=== PATIENT | female | born 2000 | race Caucasian/White ===

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

== ENCOUNTER → 2018-04-28 11:49 | Outpatient (CLI) | payer OTHER, SELFPAY ==
[2018-04-28 11:53] LABS: Adenovirus F 40/41, stool Not Detected (NotDetected); Astrovirus Not Detected (NotDetected); Campylobacter Not Detected (NotDetected); Clostridium Difficile A/B, PCR Not Detected (NotDetected); Cyclospora Cayetanesis Not Detected (NotDetected); Entamoeba histolytica Not Detected (NotDetected); Enteroaggregative E coli Not Detected (NotDetected); Enterotoxigenic E coli Not Detected (NotDetected); Giardia lamblia Not Detected (NotDetected); Norovirus Not Detected (NotDetected); Plesimonas Shigalloides, PCR Not Detected (NotDetected); Rotavirus A Not Detected (NotDetected); Salmonella, PCR Not Detected (NotDetected); Sapovirus Not Detected (NotDetected); Shiga-like toxin E coli Not Detected (NotDetected); Shigella Enterovasive E coli Not Detected (NotDetected); Vibrio Cholerae Not Detected (NotDetected); Vibrio, PCR Not Detected (NotDetected); Yersinia Entercolitica, PCR Not Detected (NotDetected)
[2018-04-28 13:43] LABS: Chloride 107 mmol/L (98-107); Potassium 3.8 mmoL/L (3.5-5.1); Sodium 141 mmol/L (136-145)
[2018-04-28 13:47] LABS: Basophils % 0.7 % (0.1-2.0); Eosinophils # 0.2 K/mm3 (0.0-0.4); Hematocrit 41.9 % (37.0-47.0); Hemoglobin 13.5 g/dL (12.2-16.2); Lymphocytes # 2.1 K/mm3 (0.7-4.5); Lymphocytes % 40.8 K/mm3 (10-50); Mean Corpuscular HGB Conc 32.3 g/dL (31.8-35.4); Mean Corpuscular Hemoglobin 27.6 pg (27.0-31.2); Mean Corpuscular Volume 85.5 fl (81-99); Mean Platelet Volume 7.9 fl (7.4-10.4); Monocytes # 0.3 K/mm3 (0.1-1.0); Monocytes % 5.2 % (1.7-9.3); Neutrophils # 2.5 K/mm3 (1.8-7.8); Neutrophils % 50.2 % (37.0-80.0); Platelet Count 254 K/mm3 (142-424); Red Cell Distribution Width 12.1 % (11.5-17.5); White Blood Count 5.1 K/mm3 (4.5-13.0)
[2018-04-28 13:56] LABS: Alanine Aminotransferase 66 U/L (12-78); Albumin Level 3.7 gm/dL (3.4-5.0); Albumin/Globulin Ratio 1.2 (1.1-1.8); Alkaline Phosphatase 85 U/L (46-116); Anion Gap 14.8 mEq/L (5-15); Aspartate Amino Transferase 40 U/L (15-37); Bilirubin,Total 0.2 mg/dL (0.2-1.0); Blood Urea Nitrogen 9 mg/dL (7-18); Calcium 8.4 mg/dL (8.5-10.1); Carbon Dioxide 23 mmol/L (21.0-32.0); Creatinine,Serum 0.72 mg/dL (0.55-1.02); Estimated Glomerular Filt Rate 104 ml/min (>60); GFR (African American) 126 ML/MIN (>60); Globulin 3.1 gm/dl (1.3-3.2); Glucose 96 mg/dL (74-106); Lipase 107 u/L (73-393); Total Protein,Serum 6.8 gm/dL (6.4-8.2)
[2018-04-28 16:24] LABS: Enteropathogenic E coli Detected (NotDetected)
[2018-04-28 16:25] LABS: Cryptosporidium Detected (NotDetected)
== END ==
PROVIDERS: Visit Provider Nurse Practitioner Family
DX: R10.9 Unspecified abdominal pain (principal); R19.7 Diarrhea, unspecified
CPT/HCPCS: 36415; 80053; 83690; 85025; 87507

== ENCOUNTER → 2018-07-12 19:39 | Outpatient (CLI) | payer OTHER, SELFPAY ==
[2018-07-12 20:33] LABS: Basophils % 0.3 % (0.1-2.0); Eosinophils # 0.1 K/mm3 (0.0-0.4); Eosinophils % 0.6 % (0.1-12.0); Hemoglobin 13.1 g/dL (12.2-16.2); Lymphocytes # 2.6 K/mm3 (0.7-4.5); Lymphocytes % 22.9 K/mm3 (10-50); Mean Corpuscular HGB Conc 32.9 g/dL (31.8-35.4); Mean Corpuscular Hemoglobin 29.1 pg (27.0-31.2); Mean Corpuscular Volume 88.4 fl (81-99); Mean Platelet Volume 7.6 fl (7.4-10.4); Monocytes # 0.6 K/mm3 (0.1-1.0); Neutrophils # 8.1 K/mm3 (1.8-7.8); Neutrophils % 71.2 % (37.0-80.0); Platelet Count 221 K/mm3 (142-424); Red Blood Count 4.52 M/mm3 (4.20-5.40); Red Cell Distribution Width 12.9 % (11.5-17.5); White Blood Count 11.3 K/mm3 (4.5-13.0)
== END ==
PROVIDERS: PCP Nurse Practitioner Family; Visit Provider Nurse Practitioner Family
DX: R59.9 Enlarged lymph nodes, unspecified (principal)
CPT/HCPCS: 36415; 85025

== ENCOUNTER → 2018-07-19 11:57 | Outpatient (CLI) | payer OTHER, SELFPAY ==
--- NOTE | 2018-07-19 12:08 | US_ITS ---
US breast RT limited INDICATION: Episode of redness and hardness of the right breast ORDERING PHYSICIAN: Dina Arreola PATIENT AGE: 17 years COMPARISON: None TECHNIQUE: Routine FINDINGS: No solid or cystic lesions evident. Small nodes in the axilla nonspecific IMPRESSION: Negative right breast ultrasound BI-RADS Category: 1 Negative Recommend correlation with physical exam. Any palpable nodularity should be managed on a clinical basis. Negative ultrasound does not exclude the possibility of underlying pathology. (A letter has been sent to the patient regarding results of the study.)
== END ==
PROVIDERS: Family Provider Internal Medicine Adolescent Medicine; PCP Nurse Practitioner Family; Visit Provider Nurse Practitioner Family
DX: N61.0 Mastitis without abscess (principal)
CPT/HCPCS: 76642

== ENCOUNTER → 2019-01-16 17:31 | Outpatient (CLI) | payer OTHER, SELFPAY ==
[2019-01-19 09:20] LABS: Neisseria gonorrhoeae, NAA Negative (Negative)
== END ==
PROVIDERS: Visit Provider Nurse Practitioner Obstetrics & Gynecology
DX: Z72.51 High risk heterosexual behavior (principal)
CPT/HCPCS: 87491; 87591

== ENCOUNTER → 2019-01-25 14:43 | Outpatient (CLI) | payer OTHER, SELFPAY ==
--- NOTE | 2019-01-25 14:47 | US_ITS ---
US transvaginal HISTORY: Pelvic pain ITS.REASON: US T/V- Pelvic Pain ORDERING PHYSICIAN: Chan Shankar MD PATIENT AGE: 18 years Comparison: None FINDINGS: The uterus measures 7 x 3.5 x 4 cm with a combined endometrial thickness of 5 mm.. There are small nabothian cysts. The right ovary is 2.5 x 1.8 cm. Left ovary is 2 x 2 cm. No dominant ovarian cyst. Small follicles are present bilaterally. No cul-de-sac fluid apparent. Bilateral ovarian blood flow is present. IMPRESSION: Unremarkable pelvic ultrasound.
== END ==
PROVIDERS: PCP Nurse Practitioner Family; Visit Provider Nurse Practitioner Obstetrics & Gynecology
DX: R10.2 Pelvic and perineal pain (principal)
CPT/HCPCS: 76830

== ENCOUNTER 2020-06-24 16:56 | Emergency (ER) | payer OTHER, SELFPAY ==
[2020-06-24 17:32] VITALS: BP 139/79; PULSE 91; RESP 20; TEMP 36.7; O2SAT 96; BMI 33.9
--- NOTE | 2020-06-24 17:41 | HMH.EDUTC ---
[facility] [place] Clinical Impression: UTI (urinary tract infection) Qualifiers: Urinary tract infection type: site unspecified Hematuria presence: with hematuria Qualified Code(s): N39.0 - Urinary tract infection, site not specified; R31.9 - Hematuria, unspecified Disposition: Home, Self-Care Condition on Discharge: Good Instructions: DI for Urinary Tract Infection (UTI), Preventing the Spread of Coronavirus Discharge Instructions, Diarrhea Additional Instructions: ? Drink extra fluids with and between meals. If you have difficulty drinking, try very small amounts of water or suck on ice chips. ? Avoid fruit juices, as these do not replace minerals and can actually increase diarrhea. ? Children and adults can use sports drinks to replenish electrolytes. Younger children and infants should use products formulated for children, like oral rehydration solutions. ? Eat food in small amounts and let your stomach recover. ? Get lots of rest. You may feel tired or weak. ? No greasy or fried foods for the next 24-48 hours BRAT diet Bananas Rice Apples and [place] ? Make sure to drink plenty of liquids ? Return if needed ? Straight to ER if any life threatening symptoms ? You was given an outpatient order for diarrhea panel, please collect specimen and bring back to outpatient lab then call back to the [facility] or follow up with family doctor for results ? Follow up with family doctor in the next 48-72 hours if no improvement or any worsening of symptoms *Increase fluids. Water not Soda or Tea *Start antibiotic immediately and be sure to take as ordered for the FULL length of time although you should start to see improvement over the next 48 hours *Pyridium as needed Remember this medication will turn your urine [place]. This is normal but it will stain what ever it gets on *You should not use Pyridium for more than 48 hours. If so , follow up with your primary physician to review urine culture and ensure that antibiotic is adequate for infection *Be SURE to follow up anytime for new or worsening symptoms with your family doctor. AND in 48 hours for urine culture results with your family doctor, if you do not have a doctor then you may call back to the [facility] for urine culture results and further treatment. We do recommend that you choose and establish care with a Primary Care Physician. AND follow up with them in 10-14 days to repeat UA to ensure infection is resolved and blood no longer present *Be sure to let your PCP know that we sent urine cultures from the [facility] so they can follow up to ensure that you area the on the correct antibiotic Call your doctor office and make appointment for 48 hours (2 days from today) to follow up and get the results of your urine culture and further treatment Call back to [facility] tomorrow for your COVID test results You was given handout with instructions for Self Quarantine and Self Isolation make sure that you follow instructions until you have a negative COVID test Give 5-7 days for your STD testing to be back Follow up with your family doctor or call back to the [facility] for your results Prescriptions: Sulfamethoxazole/Trimethoprim [Bactrim DS tablet] 1 each PO BID 10 Days #20 tab Transmission Status: Pending to [facility] Referrals: Dina Arreola [Primary Care Provider] - As needed Time of Disposition: 17:51 Medical Decision Making - Song Inquiry Pt receiving controlled substance: No Song was queried for this patient: No Vital Signs: 06/24/20 17:32 Temperature 98.1 F Temperature Source Oral Pulse Rate [Right Brachial] 91 H Respiratory Rate 20 Blood Pressure [Right Arm] 139/79 Blood Pressure Mean [Right Arm] 99 Blood Pressure Source [Right Arm] Automatic Cuff Blood Pressure Position [Right Arm] Sitting 02 Sat by Pulse Oximetry 96 Oxygen Delivery Method Room Air - Lab Data Lab results reviewed: Yes: I reviewed the patient's lab results. Orders (Tests/Meds): ORDERS Category Date Time Status Coronavirus 19
[2020-06-24 17:53] VITALS: BP 139/79; PULSE 91; RESP 20; TEMP 36.7; O2SAT 96
[2020-06-24 17:56] LABS: Apearance,Urine Cloudy (Clear); Bilirubin,Urine 1+ (Negative); Blood, Urine Trace (Negative); Color,Urine Dark Yellow (Yellow); Glucose,Urine (UA) Negative (Negative); Ketones,Urine Negative (Negative); Protein,Urine Trace (Negative); Specific Gravity, Urine 1.025 (1.005-1.030); UTC Leukocyte Esterase,Urine Trace (Negative); UTC Nitrate,Urine Negative (Negative); UTC Pregnancy Test, Urine Negative (Negative); Urobilinogen,Urine 0.2 EU/dl (0.2)
[2020-06-27 06:20] LABS: Neisseria gonorrhoeae, NAA Negative (Negative)
== END 2020-06-24 17:55 | disposition home or self-care (01) ==
PROVIDERS: Emergency Provider Nurse Practitioner; PCP Nurse Practitioner Family
DX: N30.01 Acute cystitis with hematuria (principal); Z20.828 Contact with and (suspected) exposure to other viral communicable diseases
CPT/HCPCS: 81003; 81025; 87491; 87591; 99202; U0003

== ENCOUNTER → 2020-08-20 11:51 | Outpatient (CLI) | payer OTHER, SELFPAY | PROVIDERS: PCP Nurse Practitioner Family; Visit Provider Nurse Practitioner Family | DX: Z03.818 Encounter for observation for suspected exposure to other biological agents ruled out (principal) | CPT/HCPCS: U0003 ==

== ENCOUNTER → 2021-01-27 14:49 | Outpatient (CLI) | payer OTHER, SELFPAY ==
--- NOTE | 2021-01-27 14:53 | US_ITS ---
PROCEDURE: US TRANSVAGINAL CLINICAL INDICATION: Left sided pain, left ovarian cyst COMPARISON: US TRANVAG US transvaginal from 01/25/2019 FINDINGS: The uterus is 7 x 4 x 4 cm with a combined endometrial thickness of 6 mm. No uterine mass evident. Right ovary is 3.5 x 2.3 cm and contains a 2.4 cm benign-appearing cyst. The left ovary has an unremarkable appearance at 2 x 1.3 cm. No cul-de-sac fluid evident. There is bilateral ovarian blood flow. IMPRESSION: Benign-appearing right ovarian cyst at 2.4 cm otherwise negative Dictated by: Jose De Jesus Mcdaniel MD 01/28/2021 07:19 Jose De Jesus Mcdaniel MD in OV 01/28/2021 07:19
== END ==
PROVIDERS: PCP Nurse Practitioner Family; Visit Provider Nurse Practitioner Obstetrics & Gynecology
DX: R10.9 Unspecified abdominal pain (principal); N83.202 Unspecified ovarian cyst, left side
CPT/HCPCS: 76830

== ENCOUNTER 2021-07-02 14:13 | Emergency (ER) | payer OTHER, SELFPAY ==
[2021-07-02 15:31] VITALS: BP 137/77; PULSE 77; RESP 18; TEMP 37.2; O2SAT 100; BMI 31.6
--- NOTE | 2021-07-02 15:39 | HMH.EDUTC ---
[facility] [place] Disposition Clinical Impression: Encounter for laboratory testing for COVID-19 virus, Viral syndrome Disposition: Home, Self-Care Condition on Discharge: Good Instructions: DI for Viral Syndrome, Benzonatate Additional Instructions: *Monitor Temp, Over the counter Motrin or Tylenol as directed/as needed Tylenol every 4 hours and Motrin every 6 hours (as long as your family doctor has told you that you can take it) for fever or pain. and straight to ER if unable to lower temp less than 101.0 after medication given *Warm salt water gargles may help to soothe the throat *Throat Lozenges *Warm fluids like tea with honey may help to soothe the throat *Sleep elevated *Humidifier/Vaporizer *Flonase 2 sprays in each nostril daily but be aware that it may take 2-3 days before you notice improvement Follow up IMMEDIATELY for new or worsening symptoms or no Noticeable improvement over the next 48-72 hours. 911 for difficulty breathing or swallowing You were tested for today for COVID19 your test result should be back in the next 24-48 hours, you may call to the [facility] to see if your test results are back in the next 48 hours [phone] [facility] hours are 9am-9pm You was given a handout with instructions for Self Quarantine and Self isolation for while you wait on test results and what to do if they are positive If you are positive the Health Dept will be contacting you also Make sure to take your Vitamins Vit. C Vit D and Zinc if you can take them Prescriptions: Fluticasone Propionate [Flonase 50mcg nasal spray 16gm] 1 spr NS DAILY #1 ml Transmission Status: Pending to [id number] Benzonatate [Tessalon Perle 100mg Cap*] 100 mg PO TID PRN #15 cap PRN Reason: Cough Transmission Status: Pending to [id number] Referrals: Dina Arreola [Primary Care Provider] - As needed Forms: Work/School Release Time of Disposition: 15:46 Medical Decision Making - Song Inquiry Pt receiving controlled substance: No Song was queried for this patient: No Vital Signs: 07/02/21 15:31 Temperature 98.9 F Temperature Source Oral Pulse Rate [Left] 77 Respiratory Rate 18 Blood Pressure [Right Arm] 137/77 Blood Pressure Mean [Right Arm] 97 02 Sat by Pulse Oximetry 100 Orders (Tests/Meds): ORDERS Category Date Time Status Covid-19 Nasal PCR ([facility]) Routine Lab 07/02/21 15:22 Received [facility] [place] HPI - General Stated complaint: covid Time Seen by Provider: 07/02/21 15:39 Mode of Arrival: Ambulatory Source of Information: Patient Limitations: No Limitations Description of Symptoms (Recalled from Triage Doc. by RN): pt was exposed to covid at work. pt presents with cough, MCC[place], runny nose and sweating. HEENT Symptoms (Recalled from RN notes): Yes (runny nose and M[place]OUGH) Resp Symptoms (Recalled from RN notes): Yes (cough) Skin Symptoms (Recalled from RN notes): No MS Symptoms (Recalled from RN notes): No Functional Status (Recalled from RN notes): sweating - History of Present Illness Provider Complaint: Patient state that she was around someone at work that has tested positive for COVID State that her HR told her she needed to get tested States that she has been having cough, runny nose and headache so she came in today to get tested - Related Data Previous Rx's Medication Instructions Recorded etonogestrel 0.12 mg-ethinyl 1 vag ring VAGINAL Q4W #3 each 04/17/21 estradiol 0.015 mg/24 hr vaginal ring phentermine 37.5 mg tablet 37.5 mg PO DAILY #30 tab 06/02/21 Benzonatate [Tessalon Perle 100mg 100 mg PO TID PRN #15 cap 07/02/21 Cap*] Fluticasone Propionate [Flonase 1 spr NS DAILY #1 ml 07/02/21 50mcg nasal spray 16gm] Allergies Allergy/AdvReac Type Severity Reaction Status Date / Time No Known Allergies Allergy Verified 04/17/21 09:21 - Worker's Comp Is this a Worker's Comp case?: No [facility] History - Hepatitis A Screen Drug use history?: No High risk sexual behaviors?: No History of sexual
[2021-07-02 15:59] VITALS: BP 137/77; PULSE 77; RESP 18; TEMP 37.2
== END 2021-07-02 16:10 | disposition home or self-care (01) ==
PROVIDERS: Emergency Provider Nurse Practitioner; PCP Nurse Practitioner Family
DX: B34.9 Viral infection, unspecified (principal); Z20.822 Contact with and (suspected) exposure to COVID-19; F33.1 Major depressive disorder, recurrent, moderate; F17.210 Nicotine dependence, cigarettes, uncomplicated
CPT/HCPCS: 99203; G0463; U0003

== ENCOUNTER → 2021-08-08 13:32 | Outpatient (CLI) | payer OTHER, SELFPAY | PROVIDERS: PCP Nurse Practitioner Family; Visit Provider Nurse Practitioner | DX: Z20.822 Contact with and (suspected) exposure to COVID-19 (principal); U07.1 COVID-19 | CPT/HCPCS: C9803; U0003; U0005 ==

== ENCOUNTER 2021-08-12 09:58 | Outpatient (CLI) | payer OTHER, SELFPAY ==
[2021-08-12 11:08] VITALS: BP 126/76; PULSE 95; RESP 18; TEMP 36.8; O2SAT 98
[2021-08-12 11:30] VITALS: BP 109/73; PULSE 78; RESP 18; O2SAT 99
[2021-08-12 11:45] VITALS: BP 116/70; PULSE 75; RESP 14; O2SAT 99
[2021-08-12 12:08] VITALS: BP 138/83; PULSE 79; RESP 18; O2SAT 100
[2021-08-12 12:31] VITALS: BP 105/68; PULSE 78; RESP 18; O2SAT 100
[2021-08-12 12:45] VITALS: BP 120/75; PULSE 74; RESP 16; O2SAT 100
== END 2021-08-12 12:45 | disposition home or self-care (01) ==
LOC: INF 10:00
PROVIDERS: PCP Nurse Practitioner Family; Visit Provider Nurse Practitioner Family
DX: U07.1 COVID-19 (principal); Z23 Encounter for immunization
CPT/HCPCS: 96365

== ENCOUNTER → 2021-09-18 14:39 | Outpatient (CLI) | payer OTHER, SELFPAY ==
[2021-09-18 15:52] LABS: HCG,Quantitative 878 mIU/ml (0-5.42)
== END ==
PROVIDERS: Visit Provider Nurse Practitioner Obstetrics & Gynecology
DX: N92.6 Irregular menstruation, unspecified (principal)
CPT/HCPCS: 84702

== ENCOUNTER 2021-12-01 16:56 | Emergency (ER) | payer OTHER, SELFPAY ==
[2021-12-01 20:00] VITALS: BP 0/0; PULSE 0; RESP 0; TEMP -17.7; TEMP 0
== END 2021-12-01 20:01 | disposition left against medical advice (07) ==
LOC: UTC 17:00
PROVIDERS: Emergency Provider Nurse Practitioner Family; PCP Nurse Practitioner Family
DX: Z20.822 Contact with and (suspected) exposure to COVID-19 (principal)

== ENCOUNTER → 2022-12-04 16:46 | Outpatient (CLI) | payer OTHER, SELFPAY ==
[2022-12-07 23:21] LABS: Neisseria gonorrhoeae, NAA Negative (Negative)
== END ==
PROVIDERS: PCP Obstetrics & Gynecology; Visit Provider Obstetrics & Gynecology
DX: Z34.90 Encounter for supervision of normal pregnancy, unspecified, unspecified trimester (principal)
CPT/HCPCS: 87086; 87491; 87591

== ENCOUNTER → 2022-12-18 13:40 | Outpatient (CLI) | payer OTHER, SELFPAY ==
[2022-12-18 14:27] LABS: Basophils # 0.1 K/mm3 (0-0.2); Basophils % 0.7 % (0.1-2.0); Eosinophils # 0.1 K/mm3 (0.0-0.4); Eosinophils % 1.3 % (0.1-12.0); Hematocrit 36.6 % (37.0-47.0); Hemoglobin 12.7 g/dL (12.2-16.2); Lymphocytes # 1.9 K/mm3 (0.7-4.5); Lymphocytes % 26.1 % (10-50); Mean Corpuscular HGB Conc 34.6 g/dL (31.8-35.4); Mean Corpuscular Hemoglobin 29.3 pg (27.0-31.2); Mean Corpuscular Volume 84.7 fl (81-99); Mean Platelet Volume 8.3 fl (7.4-10.4); Monocytes # 0.3 K/mm3 (0.1-1.0); Monocytes % 3.7 % (1.7-9.3); Neutrophils % 68.1 % (37.0-80.0); Platelet Count 266 K/mm3 (142-424); Red Blood Count 4.32 M/mm3 (4.20-5.40); Red Cell Distribution Width 13.3 % (11.5-17.5); White Blood Count 7.3 K/mm3 (4.8-10.8)
[2022-12-20 11:08] LABS: HIV Screen 4th Generation wRfx Non Reactive (Non Reactive); Rapid Plasma Reagin Ab Titer Non Reactive (NonRea<1:1); Rubella Antibodies, IgG 3.45 index (Immune >0.99)
[2022-12-22 23:23] LABS: Hepatitis B Surface Antigen NEGATIVE; Hepatitis C Antibody <0.1
== END ==
LOC: LAB 13:40
PROVIDERS: Obstetrics & Gynecology; PCP Nurse Practitioner Family; Visit Provider Obstetrics & Gynecology
DX: Z34.90 Encounter for supervision of normal pregnancy, unspecified, unspecified trimester (principal)
CPT/HCPCS: 36415; 85025; 86593; 86703; 86762; 86850; 87340; 87380; G0432

== ENCOUNTER → 2023-01-22 11:29 | Outpatient (CLI) | payer OTHER, SELFPAY ==
--- NOTE | 2023-01-22 11:34 | US_ITS ---
FINAL REPORT CLINICAL HISTORY: determine heart tones FINDINGS: Sonographic images of the pelvis were obtained. Gestational sac is seen in the uterus. pole is present with crown-rump length measuring 62 mm corresponding to 12 week 5 day gestation. No heart beat is identified. IMPRESSION: No heartbeat identified within the intrauterine consistent with failed . Reviewed, Interpreted and Dictated by Gianni Hammond III, MD Transcribed by Shae Mcmillan Authenticated and [facility]
[2023-01-22 13:07] LABS: Alanine Aminotransferase 11 U/L (12-78); Albumin/Globulin Ratio 1.5 (1.1-1.8); Alkaline Phosphatase 76 U/L (38-126); Anion Gap 12.9 mEq/L (5-15); Aspartate Amino Transferase 18 U/L (14-36); Bilirubin,Total 0.4 mg/dl (0.2-1.3); Blood Urea Nitrogen 4 mg/dl (7-17); Calcium 8.6 mg/dl (8.4-10.2); Carbon Dioxide 22 mmol/L (22.0-30.0); Chloride 105 mmol/L (98-107); Estimated Glomerular Filt Rate 196 ml/min (>60); GFR (African American) 237 ML/MIN (>60); Globulin 2.6 g/dL (1.3-3.2); Glucose 109 mg/dl (74-100); Potassium 3.9 mmoL/L (3.5-5.1); Sodium 136 mmol/L (136-145); Total Protein,Serum 6.6 g/dl (6.3-8.2)
[2023-01-22 13:48] LABS: Basophils # 0.1 K/mm3 (0-0.2); Basophils % 1.1 % (0.1-2.0); Eosinophils # 0.1 K/mm3 (0.0-0.4); Eosinophils % 0.9 % (0.1-12.0); Hematocrit 38.8 % (37.0-47.0); Hemoglobin 12.8 g/dL (12.2-16.2); Lymphocytes # 1.2 K/mm3 (0.7-4.5); Lymphocytes % 12.2 % (10-50); Mean Corpuscular Hemoglobin 28.4 pg (27.0-31.2); Mean Platelet Volume 8.7 fl (7.4-10.4); Monocytes # 0.3 K/mm3 (0.1-1.0); Monocytes % 3.3 % (1.7-9.3); Neutrophils # 8.2 K/mm3 (1.8-7.8); Neutrophils % 82.6 % (37.0-80.0); Platelet Count 241 K/mm3 (142-424); Red Blood Count 4.51 M/mm3 (4.20-5.40); Red Cell Distribution Width 13.5 % (11.5-17.5); White Blood Count 9.9 K/mm3 (4.8-10.8)
== END ==
LOC: RAD 11:30
PROVIDERS: PCP Nurse Practitioner Family; Visit Provider Obstetrics & Gynecology
DX: O02.1 Missed abortion (principal)
CPT/HCPCS: 36415; 76805; 80053; 85025

== ENCOUNTER 2023-01-25 11:33 | Day surgery (SDC) | payer OTHER, SELFPAY ==
[2023-01-22 13:27] VITALS: BMI 33.9
[2023-01-25] VITALS (12 sets, daily range): BP systolic 107–125; BP diastolic 60–76; PULSE 65–88; RESP 12–18; TEMP 36.5–43; O2SAT 96–100
--- NOTE | 2023-01-25 | US_ITS ---
FINAL REPORT CLINICAL HISTORY: .us assisted d/c in or FINDINGS: US PELVIS Limited ultrasound guidance was provided in the OR for a D & C. IMPRESSION: Limited ultrasound guidance in the OR for D & C. Recommend follow-up ultrasound to evaluate for retained products. Reviewed, Interpreted and Dictated by Emilio Logan MD Transcribed by Brant Valenzuela Authenticated and . [facility]
--- NOTE | 2023-01-25 13:44 | P.PN_ITS ---
[facility] Disclaimer: The information contained in this section may have been updated after the patient was seen, as this information can be updated by other users. Medical History Missed with demise before 20 completed weeks of gestation Recurrent loss Surgical History History of removal of ovarian cyst Hx of dilation and curettage Family History Other Family history of hyperlipidemia Family history of hypertension Social History Smoking Status: Current every day smoker tobacco type: cigarettes packs per day: 1 alcohol intake: never substance use type: denies use current occupational status: other Travel in the last 8 weeks: None housing: house lives independently: Yes marital status: single caffeine: Yes special gary needs: No agree to transfusion: No do you feel safe at home: Yes victim of physical abuse: No victim of emotional abuse: No victim of sexual abuse: No would you like helpful sources: No [facility] Anesthesia Checklist Patient Identification Patient Identification: Arm Band Structural Data Admitted From: Home Planned Operative Procedure/s: D&C with Elba Suction Consent for Planned Operative Procedure(s) Verified: Yes Verified Documents: Surgical Consent and History and Physical NPO Status Verified Time NPO: 00:00 Additional verifications Anesthesia Reactions: No Hx Blood Transfusions: No Blood Transfusion Reaction: No Airway Assessment C-Spine Mobility Assessed: Yes TMJ Mobility Assessed: Yes Dentition: Good Dentition Neurological Assessment Level of Consciousness: Awake and Alert Anesthesia Plan Anesthesia Risk discussed: Yes Anesthesia Plan: Verified ASA Class: II Anesthesia Type: General
--- NOTE | 2023-01-25 15:05 | EXP.ANES.I ---
[facility] Anesthesia Record Part I Anesthesia Record I Intake, IV Amount: 1,000 Estimated blood loss (mL): 400 Urine output (mL): 0 Blood Pressure: 110/63 SaO2: 96 Pulse Rate: 76 Respiratory Rate: 16 Temperature: 99.4 F Patient is:: Drowsy and Stable Stable to PACU at:: 15:00
--- NOTE | 2023-01-25 15:41 | EXP.OP.NOTE ---
Date of procedure: 01/25/23 Pre-op Diagnosis:: 1. Missed , 12 weeks 2. Recurrent loss Post-op Diagnosis:: same Procedure performed:: Suction Dilation and Curettage, with ultrasound guidance Surgeon:: Julia Espino MD HOSPITAL STAFF PHARMACIST:: Reece Santoyo Anesthesia: GETA Estimated blood loss (mL): 400 Operative findings:: demise with CRL measurement 12 5/7 Operative note:: The patient was taken to the OR and general anesthesia administered without difficulty. She was prepped and draped in lithotomy position. Salas retractors were used to visualize the cervix and a single tooth tenaculum placed on the anterior lip of the cervix. The cervix was passively dilated until it could accomodate the suction curette. A size # 12 curved curette was used to evacuate the contents of the uterus. Abdominal ultrasound was performed concurrently by radiology asset protection professional because of advanced gestational age at time of demise. Once and placental tissue had been evacuated, sharp curettage was used to ensure that no products remained within the uterine cavity. All instruments were then removed from the patients vagina, she was taken out of lithotomy position, awakened from anesthesia and taken to the PACU in stable condition. All sponge, needle and instrument counts were correct. EBL: 400. IM Methergine was given during the procedure, and Rhogam will be given in PACU. The majority of the specimen was sent for routine pathology evaluation, but a small amount of tissue was sent to [facility] for Anora genetic testing as part of evaluation for recurrent loss. Condition: stable Disposition: PACU Specimens:: Products of conception Complications:: None
--- NOTE | 2023-01-26 09:11 | P.PNANES_ITS ---
[facility] Anesthesia Record Part II Anesthesia Record Part II Discharge Time: 15:40 Destination: Surgical Day Care (OP Surgery) PACU nurse assessment reviewed?: Yes Patient Condition:: Good Anesthesia Complications:: None Swallowing reflex intact?: Yes Cyanosis?: No Blood Pressure: 113/69 Pulse Rate: 65 Temperature: 98.4 F Mental Status: Alert & Oriented Pain level:: 0 Nausea and/or vomitting:: None Intake, IV Amount: 0
[2023-01-26 09:12] VITALS: BP 113/69; PULSE 65; TEMP 36.9
== END 2023-01-25 16:32 | disposition home or self-care (01) ==
PROVIDERS: PCP Nurse Practitioner Family; Visit Provider Obstetrics & Gynecology
PROC: (CPT 59820; principal; 2023-01-25 13:30)
DX: O02.1 Missed abortion (principal); N96 Recurrent pregnancy loss; Z3A.12 12 weeks gestation of pregnancy
CPT/HCPCS: 59820; 76856; 86850; 96374; J2405; J2790

== ENCOUNTER → 2023-06-25 11:40 | Outpatient (CLI) | payer OTHER, SELFPAY ==
[2023-06-25 17:51] LABS: HCG,Quantitative 172960 mIU/ml (0-5.42)
[2023-06-26 10:12] LABS: Progesterone 24.6 ng/mL (.)
== END ==
PROVIDERS: Obstetrics & Gynecology; PCP Nurse Practitioner Family; Visit Provider Obstetrics & Gynecology
DX: Z32.01 Encounter for pregnancy test, result positive (principal); Z3A.08 8 weeks gestation of pregnancy
CPT/HCPCS: 36415; 84144; 84702

== ENCOUNTER → 2023-07-01 10:24 | Outpatient (CLI) | payer OTHER, SELFPAY ==
[2023-07-01 13:02] LABS: HCG,Quantitative 141550 mIU/ml (0-5.42)
[2023-07-02 03:37] LABS: Progesterone 20.6 ng/mL (.)
== END ==
LOC: LAB 10:25
PROVIDERS: PCP Nurse Practitioner Family; Visit Provider Obstetrics & Gynecology
DX: N92.6 Irregular menstruation, unspecified (principal); Z32.00 Encounter for pregnancy test, result unknown
CPT/HCPCS: 36415; 84144; 84702

== ENCOUNTER → 2023-07-02 11:00 | Outpatient (CLI) | payer OTHER, SELFPAY | PROVIDERS: PCP Internal Medicine; Visit Provider Obstetrics & Gynecology | DX: Z34.91 Encounter for supervision of normal pregnancy, unspecified, first trimester (principal); Z3A.09 9 weeks gestation of pregnancy | CPT/HCPCS: 87086 ==

== ENCOUNTER → 2023-09-10 12:48 | Outpatient (CLI) | payer OTHER, SELFPAY ==
--- NOTE | 2023-09-10 12:54 | US_ITS ---
PROCEDURE: US OB /MATERNAL DETAIL CLINICAL INDICATION: 20 week anatomy scan COMPARISON: No exams were available for comparison FINDINGS: Transabdominal sonographic images of the pelvis were obtained. From her established due date she is 19 weeks 5 days. Single viable intrauterine gestation. Breech position. Placenta: Anteriorplacenta grade 1. There is an average amount of fluid. MVP 2.9 cm. The cervix appears satisfactory. Closed and measuring 2.9 cm in length. Complete survey performed and was unremarkable on the submitted images as in PACS. No discrete anomalies identified on survey imaging by technologist. Active fetus. Three-vessel cord with satisfactory umbilical cord insertion. 4- chamber heart noted. Situs, aortic arch, LVOT, RVOT, three-vessel view appear normal. Survey of brain & ventricles Unremarkable. Cerebellum, cisterna magna, thalamus, choroid plexus appear normal. Face and neck survey unremarkable. Profile, nasion, lips and nose appeared normal. Diaphragm and chest views unremarkable. Abdomen: Both kidneys noted and unremarkable. Stomach and bladder noted and satisfactory. Spine: Survey of the spine satisfactory with no anomalies identified nor imaged. Cervical, thoracic, lower spine appear normal. Both arms and legs noted. Amniotic Fluid: Adequate. Measurements: Average ultrasound age 19weeks 3days. Estimated due date by ultrasound age 0302/01/2024. Estimated weight 291g BPD = 19weeks 0 days HC = 19weeks 5days AC = 19weeks 1day FL = 19weeks 6days Growth Percentile= 29 Heart Rate = 132bpm Cerebellum = 19weeks 4days Humerus = 19weeks 6days HC/AC is 1.24 FL/BPD is 0.73 FL/AC is 0.23 IMPRESSION: 1. Viable fetus in the breech presentation with an anterior placenta grade 1. 2. Fluid is within normal limits. 3. Anatomical scan appears normal. 4. biometry is consistent with dates. Dictated by: Chan Shankar MD 09/11/2023 08:28 Chan Shankar MD in [facility] 09/11/2023 08:28
== END ==
LOC: RAD 12:52
PROVIDERS: PCP Internal Medicine; Visit Provider Obstetrics & Gynecology
DX: O26.22 Pregnancy care for patient with recurrent pregnancy loss, second trimester (principal); Z3A.20 20 weeks gestation of pregnancy; E72.12 Methylenetetrahydrofolate reductase deficiency
CPT/HCPCS: 76811

== ENCOUNTER 2023-11-12 09:00 | Outpatient (CLI) | payer OTHER, SELFPAY ==
[2023-11-12 09:42] LABS: Basophils % 0.3 % (0.1-2.0); Eosinophils # 0.1 K/mm3 (0.0-0.4); Eosinophils % 1.2 % (0.1-12.0); Hematocrit 34.8 % (37.0-47.0); Hemoglobin 11.6 g/dL (12.2-16.2); Lymphocytes # 1.3 K/mm3 (0.7-4.5); Mean Corpuscular HGB Conc 33.3 g/dL (31.8-35.4); Mean Corpuscular Hemoglobin 28.7 pg (27.0-31.2); Mean Corpuscular Volume 86.2 fl (81-99); Mean Platelet Volume 8.8 fl (7.4-10.4); Monocytes # 0.3 K/mm3 (0.1-1.0); Monocytes % 3.5 % (1.7-9.3); Neutrophils % 81.9 % (37.0-80.0); Platelet Count 232 K/mm3 (142-424); Red Blood Count 4.04 M/mm3 (4.20-5.40); Red Cell Distribution Width 13.3 % (11.5-17.5); White Blood Count 9.7 K/mm3 (4.8-10.8)
[2023-11-12 09:48] LABS: Glucose,Fasting 90 mg/dl (74-100)
[2023-11-12] MEDS: RHO(D) IMMUNE GLOBULIN 1,500 UNIT SYRINGE 1500 UNIT IM (10:45)
[2023-11-12 10:52] LABS: Glucose 1 Hour 150 mg/dL (74-100)
== END 2023-11-12 11:00 | disposition home or self-care (01) ==
LOC: LAB 09:01 → INF 10:37
PROVIDERS: PCP Obstetrics & Gynecology; Visit Provider Obstetrics & Gynecology
DX: Z34.93 Encounter for supervision of normal pregnancy, unspecified, third trimester (principal); Z3A.28 28 weeks gestation of pregnancy
CPT/HCPCS: 36415; 82951; 85025; 96372; J2790

== ENCOUNTER 2023-11-18 08:29 | Outpatient (CLI) | payer OTHER, SELFPAY ==
[2023-11-18 09:01] LABS: Glucose,Fasting 95 mg/dl (74-100)
[2023-11-18 10:16] LABS: Glucose 1 Hour 152 mg/dL (74-100)
[2023-11-18 11:28] LABS: Glucose 2 Hour 135 mg/dL (74-100)
[2023-11-18 12:33] LABS: Glucose 3 Hour 125 mg/dL (74-100)
== END 2023-11-18 23:59 ==
LOC: LAB 08:30
PROVIDERS: PCP Nurse Practitioner Family; Visit Provider Obstetrics & Gynecology
DX: Z34.93 Encounter for supervision of normal pregnancy, unspecified, third trimester (principal); Z3A.29 29 weeks gestation of pregnancy
CPT/HCPCS: 82951

== ENCOUNTER 2023-12-21 18:49 | Outpatient (CLI) | payer OTHER, SELFPAY ==
[2023-12-21 19:04] VITALS: BMI 35.0
[2023-12-21 19:08] VITALS: BP 114/69; PULSE 90; RESP 18; TEMP 36.8; O2SAT 98; BMI 35.0
[2023-12-21 19:18] LABS: Microscopic, Urine URINE MICROSCOPIC (MICROSCOPIC)
[2023-12-21 19:22] LABS: Appearance,Urine CLEAR (Clear); Bilirubin,Urine Negative (Negative); Blood, Urine Negative (Negative); Color,Urine YELLOW (Yellow); Glucose,Urine (UA) Negative (Negative); Ketones,Urine Negative (Negative); Leukocyte Esterase,Urine Negative (Negative); Nitrate,Urine Negative (Negative); Protein,Urine Negative (Negative); Urobilinogen,Urine 0.2 EU/dl (0.2)
[2023-12-21 19:35] LABS: Amphetamine/Metha Screen,Urine Negative ng/ml (<1000); Benzodiazepines Screen,Urine Negative ng/ml (<200)
[2023-12-21 19:36] LABS: Barbiturates Screen,Urine Negative ng/ml (<200)
[2023-12-21 19:37] LABS: Methadone Screen,Urine Negative ng/ml (<300)
[2023-12-21 19:38] LABS: Cocaine Screen,Urine Negative ng/ml (<300)
[2023-12-21 19:39] LABS: Opiate Screen,Urine Negative ng/ml (<300); Phencyclidine Screen,Urine Negative ng/ml (<25)
[2023-12-21 19:42] LABS: Cannabinoid Screen,Urine Negative ng/ml (<50)
[2023-12-21 19:51] LABS: RBC,Urine Occasional #/hpf (0-3)
[2023-12-21 19:52] LABS: Bacteria,Urine Trace /lpf
[2023-12-21] MEDS: LACTATED RINGERS 1000ML 1,000 ML 999 ML IV (20:15)
[2023-12-21] MEDS: ACETAMINOPHEN 500MG TAB 1000 MG PO (20:16)
== END 2023-12-21 21:18 | disposition home or self-care (01) ==
LOC: OBOUT 18:52 → OB 18:55
PROVIDERS: PCP Nurse Practitioner Family; Visit Provider Obstetrics & Gynecology
DX: O26.893 Other specified pregnancy related conditions, third trimester (principal); Z3A.34 34 weeks gestation of pregnancy
CPT/HCPCS: 80307; 81001

== ENCOUNTER 2023-12-31 12:47 | Outpatient (CLI) | payer OTHER, SELFPAY ==
--- NOTE | 2023-12-31 12:48 | US_ITS ---
PROCEDURE: US OB FOLLOW UP CLINICAL INDICATION: breech position COMPARISON: No exams were available for comparison FINDINGS: Transabdominal sonographic images of the pelvis were obtained. The following parameters are obtained: From her established due date she is 35weeks 5days Viable fetus in the cephalic presentation with anterior placenta grade 2. The cervix measures 3.65 cm. heart rate: 139bpm bpm. weight 2740 grams, 6 lb 1 oz BPD: 35weeks 3days, 48 percentile HC: 36weeks 2days, 32 percentile AC: 35weeks 6days, 60 percentile FL: 35weeks 4days, 37 percentile HC/AC: 1.01 FL/BPD: 0.79 FL/AC: 0.22 Growth percentile: 49 Amniotic fluid index: 11.4cm,MVP 5.09 cm. No obvious anomalies evident. profile seen, stomach, bladder, kidneys, three-vessel cord, four chamber heart appear normal. IMPRESSION: 1. Viable fetus in the cephalic presentation with an anterior placenta grade 2. 2. The fluid is within normal limits with an amniotic fluid index of 11.4 cm, MVP 5.09 cm. 3. There is good breathing movement and movement seen. 4. There has been good interval growth with the fetus currently 49 percentile. Dictated by: Chan Shankar MD 12/31/2023 15:51 Chan Shankar MD in [facility] 12/31/2023 15:51
== END 2023-12-31 23:59 ==
LOC: RAD 12:48
PROVIDERS: PCP Nurse Practitioner Family; Visit Provider Obstetrics & Gynecology
DX: O32.1XX0 Maternal care for breech presentation, not applicable or unspecified (principal); Z3A.35 35 weeks gestation of pregnancy; Z72.0 Tobacco use
CPT/HCPCS: 76816; 76819

== ENCOUNTER 2024-01-07 16:22 | Outpatient (CLI) | payer OTHER, SELFPAY | END 2024-01-07 23:59 | LOC: LAB.DROPOF 16:23 | PROVIDERS: PCP Obstetrics & Gynecology; Visit Provider Obstetrics & Gynecology | DX: O26.893 Other specified pregnancy related conditions, third trimester (principal); Z3A.36 36 weeks gestation of pregnancy; R10.2 Pelvic and perineal pain | CPT/HCPCS: 86403 ==

== ENCOUNTER 2024-01-10 14:03 | Outpatient (CLI) | payer OTHER, SELFPAY ==
[2024-01-10 14:14] VITALS: BMI 37.3
[2024-01-10 14:51] LABS: Microscopic, Urine URINE MICROSCOPIC (MICROSCOPIC)
[2024-01-10 14:53] LABS: Appearance,Urine CLEAR (Clear); Bilirubin,Urine Negative (Negative); Blood, Urine Negative (Negative); Color,Urine YELLOW (Yellow); Glucose,Urine (UA) Negative (Negative); Ketones,Urine Negative (Negative); Leukocyte Esterase,Urine Negative (Negative); Nitrate,Urine Negative (Negative); PH,Urine 6.5 (5.0-8.5); Protein,Urine Negative (Negative); Specific Gravity, Urine 1.015 (1.005-1.030); Urobilinogen,Urine 0.2 EU/dl (0.2)
[2024-01-10 15:00] VITALS: BP 114/78; PULSE 98; RESP 18; TEMP 36.4; O2SAT 97; BMI 35.9
[2024-01-10 15:06] LABS: Benzodiazepines Screen,Urine Negative ng/ml (<200)
[2024-01-10 15:07] LABS: Amphetamine/Metha Screen,Urine Negative ng/ml (<1000); Bacteria,Urine Trace /lpf; Methadone Screen,Urine Negative ng/ml (<300)
[2024-01-10 15:08] LABS: Cannabinoid Screen,Urine Negative ng/ml (<50); WBC,Urine Occasional #/hpf (0-3)
[2024-01-10 15:09] LABS: Opiate Screen,Urine Negative ng/ml (<300)
[2024-01-10 15:10] LABS: Phencyclidine Screen,Urine Negative ng/ml (<25)
[2024-01-10 15:17] LABS: Cocaine Screen,Urine Negative ng/ml (<300)
[2024-01-10 15:34] LABS: Barbiturates Screen,Urine Negative ng/ml (<200)
== END 2024-01-10 15:30 | disposition home or self-care (01) ==
LOC: OBOUT 14:05 → OB 14:05
PROVIDERS: PCP Nurse Practitioner Family; Visit Provider Nurse Practitioner Obstetrics & Gynecology
DX: O26.893 Other specified pregnancy related conditions, third trimester (principal); R10.2 Pelvic and perineal pain; M54.50 Low back pain, unspecified
CPT/HCPCS: 59025; 80307; 81001; G0463

== ENCOUNTER 2024-01-11 16:57 | Outpatient (CLI) | payer OTHER, SELFPAY ==
[2024-01-11 17:36] VITALS: BMI 35.9
[2024-01-11 17:47] LABS: Microscopic, Urine URINE MICROSCOPIC (MICROSCOPIC)
[2024-01-11 17:59] LABS: Appearance,Urine SL CLOUDY (Clear); Bilirubin,Urine Negative (Negative); Blood, Urine TRACE-I (Negative); Color,Urine YELLOW (Yellow); Glucose,Urine (UA) Negative (Negative); Ketones,Urine Negative (Negative); Leukocyte Esterase,Urine Negative (Negative); Nitrate,Urine Negative (Negative); Protein,Urine Negative (Negative); Specific Gravity, Urine 1.025 (1.005-1.030)
[2024-01-11 18:04] VITALS: BP 123/69; PULSE 94; RESP 17; TEMP 36.6; O2SAT 99; BMI 35.9
[2024-01-11 18:14] LABS: Barbiturates Screen,Urine Negative ng/ml (<200); Benzodiazepines Screen,Urine Negative ng/ml (<200)
[2024-01-11 18:16] LABS: Cocaine Screen,Urine Negative ng/ml (<300); Methadone Screen,Urine Negative ng/ml (<300)
[2024-01-11 18:17] LABS: Opiate Screen,Urine Negative ng/ml (<300); Phencyclidine Screen,Urine Negative ng/ml (<25)
[2024-01-11 18:19] LABS: Bacteria,Urine 1+ /lpf; RBC,Urine Occasional #/hpf (0-3)
[2024-01-11 18:24] LABS: Cannabinoid Screen,Urine Negative ng/ml (<50)
[2024-01-11 19:31] LABS: Amphetamine/Metha Screen,Urine Negative ng/ml (<1000)
== END 2024-01-11 18:40 | disposition home or self-care (01) ==
LOC: OBOUT 16:59 → OB 17:00
PROVIDERS: PCP Nurse Practitioner Family; Visit Provider Obstetrics & Gynecology
DX: O60.03 Preterm labor without delivery, third trimester (principal); Z3A.37 37 weeks gestation of pregnancy
CPT/HCPCS: 59025; 80307; 81001; G0463

== ENCOUNTER 2024-01-23 01:39 | Inpatient (IN) | payer OTHER, SELFPAY ==
[2024-01-22 23:33] VITALS: BMI 36.9
[2024-01-22 23:48] LABS: Microscopic, Urine URINE MICROSCOPIC (MICROSCOPIC)
[2024-01-23] VITALS: BP 155/85; PULSE 97; RESP 18; TEMP 36.5; O2SAT 98; BMI 36.9
[2024-01-23 00:02] LABS: Appearance,Urine SL CLOUDY (Clear); Bilirubin,Urine Negative (Negative); Blood, Urine 2+ (Negative); Color,Urine YELLOW (Yellow); Glucose,Urine (UA) Negative (Negative); Ketones,Urine Negative (Negative); Leukocyte Esterase,Urine 2+ (Negative); Nitrate,Urine Negative (Negative); PH,Urine 6.5 (5.0-8.5); Protein,Urine Negative (Negative); Urobilinogen,Urine 0.2 EU/dl (0.2)
[2024-01-23 00:17] LABS: Bacteria,Urine 1+ /lpf; WBC,Urine TNTC #/hpf (0-3)
[2024-01-23 00:18] LABS: Amphetamine/Metha Screen,Urine Negative ng/ml (<1000)
[2024-01-23 00:19] LABS: Barbiturates Screen,Urine Negative ng/ml (<200); Benzodiazepines Screen,Urine Negative ng/ml (<200)
[2024-01-23 00:20] LABS: Cannabinoid Screen,Urine Negative ng/ml (<50)
[2024-01-23 00:21] LABS: Cocaine Screen,Urine Negative ng/ml (<300); Methadone Screen,Urine Negative ng/ml (<300)
[2024-01-23 00:22] LABS: Opiate Screen,Urine Negative ng/ml (<300)
[2024-01-23 00:23] LABS: Phencyclidine Screen,Urine Negative ng/ml (<25)
[2024-01-23 02:00] LABS: Basophils % 0.3 % (0.1-2.0); Eosinophils # 0.1 K/mm3 (0.0-0.4); Eosinophils % 0.8 % (0.1-12.0); Hematocrit 36.6 % (37.0-47.0); Hemoglobin 11.8 g/dL (12.2-16.2); Lymphocytes # 2.1 K/mm3 (0.7-4.5); Lymphocytes % 19.5 % (10-50); Mean Corpuscular HGB Conc 32.3 g/dL (31.8-35.4); Mean Corpuscular Volume 80.5 fl (81-99); Mean Platelet Volume 9.6 fl (7.4-10.4); Monocytes # 0.4 K/mm3 (0.1-1.0); Monocytes % 4.1 % (1.7-9.3); Neutrophils % 75.2 % (37.0-80.0); Platelet Count 281 K/mm3 (142-424); Red Blood Count 4.54 M/mm3 (4.20-5.40); Red Cell Distribution Width 15.8 % (11.5-17.5); White Blood Count 10.6 K/mm3 (4.8-10.8)
[2024-01-23 02:09] LABS: Chloride 107 mmol/L (98-107); Potassium 4.1 mmoL/L (3.5-5.1); Sodium 135 mmol/L (136-145)
[2024-01-23 02:12] LABS: Alanine Aminotransferase 15 U/L (12-78); Albumin Level 3.4 g/dl (3.5-5.0); Albumin/Globulin Ratio 1.2 (1.1-1.8); Alkaline Phosphatase 226 U/L (38-126); Anion Gap 10.1 mEq/L (5-15); Aspartate Amino Transferase 21 U/L (14-36); Bilirubin,Total 0.2 mg/dl (0.2-1.3); Blood Urea Nitrogen 8 mg/dl (7-17); Carbon Dioxide 22 mmol/L (22.0-30.0); Creatinine Clearance Estimated 282 mL/min (50-200); Estimated Glomerular Filt Rate 150 ml/min (>60); GFR (African American) 182 ML/MIN (>60); Globulin 2.9 g/dL (1.3-3.2); Total Protein,Serum 6.3 g/dl (6.3-8.2)
[2024-01-23 02:13] LABS: Glucose 105 mg/dl (74-100)
[2024-01-23] MEDS: OXYTOCIN/RINGERS LACTATE 30 UNITS/500 ML BAG 40 UNITS IV (06:10)
--- NOTE | 2024-01-23 06:28 | P.HP_ITS ---
History of Present Illness *Admission Date: 01/23/24 *Reason for visit:: Active Labor *History of present illness: Jolie is a 23-year-old -0-2-1 at 39 weeks and 0 days gestation who presented to labor and delivery with regular painful contractions. Patient was observed for 2 hours and noted to be making cervical change. She was admitted for labor monitoring and delivery. Her has been complicated by an MTHFR variant, HSV-2, Rh negative blood type, obesity, and she is a carrier for autosomal recessive polycystic kidney disease. Patient was seen by MFM early in her and started on Lovenox secondary to being on MTHFR carrier with a history of recurrent SAB. This was discontinued at 35 weeks gestation. She took Valtrex for HSV suppression and denied any prodromal symptoms or lesions this morning. Her partner was tested and is negative for polycystic kidney disease. On presentation patient endorsed good movement and denies any leakage of fluid or vaginal bleeding. A-, antibody negative, rubella immune, hepatitis B negative, hepatitis C negati ve, RPR negative, HIV negative 1 hour GTT: 150 3 hour GTT: 95/152/135/125 GBS negative PFSH PFS Disclaimer: The information contained in this section may have been updated after the patient was seen, as this information can be updated by other users. Medical History (Updated 01/23/24 @ 06:36 by Elisabet Salomon DO) Rh negative status during Tobacco abuse Recurrent loss Missed with demise before 20 completed weeks of gestation Surgical History History of removal of ovarian cyst Hx of dilation and curettage Family History Other Family history of hyperlipidemia Family history of hypertension Social History Smoking Status: Current every day smoker tobacco type: e-cigarettes alcohol intake: never substance use type: denies use current occupational status: employed Travel in the last 8 weeks: None housing: house lives independently: Yes marital status: single caffeine: Yes special gary needs: No agree to transfusion: No do you feel safe at home: Yes victim of physical abuse: No victim of emotional abuse: No victim of sexual abuse: No would you like helpful sources: No Review of Systems Review of Systems Review of systems (narrative): Review of Systems Constitutional: Denies fever, chills, and sweats Eyes: Denies vision change/ pain Respiratory: Denies cough and shortness of breath Cardiovascular: Denies chest pain and lightheadedness Gastrointestinal: Admits abdominal pain with contractions. Denies nausea, vomiting. Genitourinary: Denies dysuria and incontinence Musculoskeletal: Denies shoulder pain and back pain Neurological: Denies change in speech or headaches Meds Home Medications and Allergies Home Medications Medication Instructions Recorded Confirmed Type PNV 153-FA 400 mcg-om3 35 mg-dha tab PO 07/02/23 01/21/24 History 25 mg-epa 5 mg-fish oil chew tablet ( Gummies) valacyclovir 500 mg tablet 1,000 mg (2 x 500 mg) PO DAILY #60 12/18/23 01/21/24 Rx (Valtrex) tabs New Prescriptions to Start Prescriptions: Allergies Allergy/AdvReac Type Severity Reaction Status Date / Time No Known Allergies Allergy Verified 01/21/24 09:57 Exam Data for Last 24 hours Vital signs and Labs for Last 24 Hours: Temp Pulse Resp BP Pulse Ox O2 Del Method 97.7 F 97 H 18 155/85 H 98 Room Air 01/23/24 00:00 01/23/24 00:00 01/23/24 00:00 01/23/24 00:00 01/23/24 00:00 01/23/24 00:00 Laboratory Results - last 24 hr 01/22/24 23:35: Urine Color Yellow, Urine Appearance Sl cloudy, Urine pH 6.5, Ur Specific [place] 1.020, Urine Protein Negative, Urine Glucose (UA) Negative, Urine Ketones Negative, Urine Blood 2+, Urine Nitrate Negative, Urine Bilirubin Negative, Urine Urobilinogen 0.2, Ur Leukocyte Esterase 2+ A, Urine RBC 5-10, Urine WBC Tntc, Ur Squamous Epith Cells 5-10, Urine Bacteria 1+, Urine Opiates Screen Negative, Urine Methadone Screen Negative, Ur Barbituates Screen Negative, Ur Phencyclidine Scrn Negative, Ur Amphetamines Screen Negative, U Benzodiazepines Scrn Negative, Urine Cocaine Screen Negative, U Marijuana (THC) Screen Negative 01/23/24 01:50: WBC 10.6, RBC 4.54, Hgb 11.8 L, Hct 36.6 L, MCV 80.5 L, MCH 26.0 L, MCHC 32.3, RDW 15.8, Plt Count 281, MPV 9.6, Neut % (Auto) 75.2, Lymph % ( Auto) 19.5, [place] % (Auto) 4.1, Eos % (Auto) 0.8, Baso % (Auto) 0.3, Neut # (Auto) 8.0 H, Lymph # (Auto) 2.1, [place] # (Auto) 0.4, Eos # (Auto) 0.1, Baso # (Auto) 0.0, Sodium 135 L, Potassium 4.1, Chloride 107, Carbon Dioxide 22, Anion Gap 10.1, BUN 8, Creatinine 0.50 L, Estimated Creat Clear 282, Estimated GFR 150, Est GFR ( Amer) 182, Glucose 105 H, Calcium 9.0, Total Bilirubin 0.2, AST 21, ALT 15, Alkaline Phosphatase 226 H, Total Protein 6.3, Albumin 3.4 L, Globulin 2.9, Albumin/Globulin Ratio 1.2, Blood Type A Negative, Antibody Screen Negative I & O for Last 24 hours: Intake & Output 01/20/24 01/21/24 01/22/24 01/23/24 23:59 23:59 23:59 23:59 Weight 229 lb 229 lb Narrative: General: patient is alert oriented in no acute distress and responds appropriately to questions. HEENT: NCAT, EOMI, moist mucous membranes, neck supple with full ROM Cardiovascular: RRR +S1/S2, no murmurs or rubs Pulmonary: Clear to auscultation bilaterally, nonlabored breathing, symmetric chest rise Abdominal: Gravid abdomen appropriate for gestation. No guarding, rebound, or tenderness noted. SVE: On admission 560/-3 two hours later: 70/-3. Extremities: trace edema, no tenderness or cyanosis noted Skin: Normal turgor, intact, warm. Negative for erythema, pallor, petechia, or lesions Neurologic: Negative for sensory or motor deficit Psychiatric: Normal affect, normal thought process, good judgment and insight, no depression or anxious mood appreciated. *Routine HEENT Exam Head: Present normocephalic and atraumatic Eye: Present EOMI, PERRL and normal accommodation; Absent conjunctival icterus, scleral injection, nystagmus or exophthalmos ENT: Present mucous membranes moist *Routine Respiratory Exam Respiratory: Present CTA bilaterally, normal respiratory effort, able to speak in complete sentences and symmetric chest movement; Absent accessory muscle use, decreased breath sounds, rales, respiratory distress, wheezes, distant breath sounds or diminished air movement *Routine Cardiovascular Exam Cardiovascular: Present RRR, Normal S1 and Normal S2; Absent murmur or gallop *Routine Abdominal Exam Abdominal: Present soft and normoactive bowel sounds; Absent tenderness, distended, rebound or guarding *Routine Rectal Exam Rectal:: deferred *Routine Genitalia Exam Genitalia:: normal female Assessment and Plan *Assessment and plan (1) Polycystic kidney, autosomal recessive: Problem Comment: carrier Status: Acute Category: Medical Code(s): Q61.19 - Other polycystic kidney, infantile type (2) MTHFR deficiency complicating : Status: Acute Category: Medical Code(s): O99.280 - Endocrine, nutritional and metabolic diseases complicating , unspecified trimester; E72.12 - Methylenetetrahydrofolate reductase deficiency (3) HSV (herpes simplex virus) anogenital infection: Status: Acute Category: Medical Code(s): A60.9 - Anogenital herpesviral infection, unspecified (4) Obesity with body mass index greater than 30: Status: Acute Category: Medical Code(s): E66.9 - Obesity, unspecified (5) Rh negative status during : Status: Acute Category: Medical Code(s): O26.899 - Other specified related conditions, unspecified trimester; Z67.91 - Unspecified blood type, Rh negative Plan - Monitor vitals - Admit to L&D for monitoring and delivery - External FHR and TOCO monitor - GBS-/ Blood type: A- - Hemoglobin: 11.8, Plt: 281 - Plan for epidural - Anticipate vaginal delivery of Male : Salvador De La Torreenix
[2024-01-23 06:38] LABS: Cord Blood PH 7.31 (7.35-7.45)
--- NOTE | 2024-01-23 06:38 | EXP.DN ---
Delivery Note Delivery Date:: 01/23/24 Delivery Time:: 06:07 Anesthesia Type: Epidural Was labor medically induced?: No Induction method: none Gestational age (weeks): 39 delivered prior to 39 weeks?: No Gender: Male at 1 minute: 8 (Tone and color) at 5 minutes: 9 (Color) Delivery Procedure:: Preoperative diagnosis: 1. at 39 completed this weeks gestation, vertex 2. Rh negative 3. GBS negative 4. MTHFR deficiency 5. Obesity 6. HSV-2 positive 7. Autosomal recessive polycystic kidney disease carrier Postoperative diagnosis: 1. at 39 completed this weeks gestation, vertex 2. Rh negative 3. GBS negative 4. MTHFR deficiency 5. Obesity 6. HSV-2 positive 7. Autosomal recessive polycystic kidney disease carrier EBL: 100mL Specimen: 1. Cord blood 2. Venous cord gas, pH: 7.3 Findings: 1. Liveborn viable male : Salvador Gomes. Apgars 8/9 at 1 and 5 minutes respectively. Weight pending at time of dictation Complications: None Procedure: Nonoperative spontaneous vaginal delivery Patient presented in active labor and without Pitocin augmentation progressed to complete. She received an epidural for anesthesia. She did have artificial rupture membranes revealing clear fluid. She progressed to complete. During pushing the patient had late decelerations with contractions. She was counseled on a vacuum-assisted vaginal delivery. Patient delivered within 2 contractions and a vacuum was not required. The was noted to be in MANPREET position. With effective maternal pushing there was a nonoperative spontaneous vaginal delivery. There was not a nuchal cord. The anterior left shoulder delivered, followed by the posterior shoulder without dystocia. The body and lower extremities delivered without difficulty. The was bulb suctioned and was crying immediately following delivery. The infant was placed on the maternal abdomen and greater than one minute was appreciated for delayed cord clamping. The umbilical cord was doubly clamped and cut. Cord blood was collected and sent for routine testing. Venous cord gases were obtained. I unsuccessfully attempted to obtain arterial cord gas. The placenta delivered with cord traction and suprapubic contertraction. Pitocin was started. The uterus was firm and bleeding was minimal. The perineum, vaginal sky, cervix, and paraurethral area were inspected thoroughly. There were bilateral periclitoral abrasions which were very superficial and not bleeding, did not require repair. This concluded the delivery. The patient tolerated the delivery well. All counts were correct. Mother and were doing well and bonding upon my leaving the delivery room. Placental Delivery Description: Spontaneous
[2024-01-23] MEDS: BENZOCAINE-MENTHOL SPRAY 56GM CAN TP (08:11)
[2024-01-23] MEDS: WITCH HAZEL 40 PADS/BOX 1 EACH TP (08:11)
[2024-01-23] MEDS: ACETAMINOPHEN 500MG TAB 1000 MG PO ×3 (08:12→20:50)
[2024-01-23] MEDS: IBUPROFEN 400 MG TABLET 800 MG PO ×2 (08:12→20:50)
--- NOTE | 2024-01-23 08:15 | P.CONPHA_ITS ---
Pharmacy Intervention Comments: MEDICATION RECONCILIATION COMPLETED ON PATIENT USING LIST FROM [facility]LY[facility] OFFICE. -AILEEN LING, GRANTD
--- NOTE | 2024-01-23 08:15 | HMH.PHAINT1 ---
Pharmacy Intervention Comments: MEDICATION RECONCILIATION COMPLETED ON PATIENT USING LIST FROM [facility]PERATOR APPRENTICE OFFICE. -AILEEN LING, GRANTD
[2024-01-23] MEDS: ACYCLOVIR 400MG TAB 400 MG PO ×3 (09:23→20:50)
[2024-01-23] MEDS: PRENATAL MULTIVITAMIN W/IRON 1 EACH PO (18:40)
[2024-01-24] MEDS: IBUPROFEN 400 MG TABLET 800 MG PO (04:07)
[2024-01-24] MEDS: ACETAMINOPHEN 500MG TAB 1000 MG PO ×2 (04:07→10:41)
[2024-01-24 06:32] LABS: Basophils % 0.5 % (0.1-2.0); Eosinophils # 0.2 K/mm3 (0.0-0.4); Eosinophils % 1.9 % (0.1-12.0); Hematocrit 32.2 % (37.0-47.0); Hemoglobin 10.4 g/dL (12.2-16.2); Lymphocytes # 2.2 K/mm3 (0.7-4.5); Lymphocytes % 27.5 % (10-50); Mean Corpuscular HGB Conc 32.4 g/dL (31.8-35.4); Mean Corpuscular Hemoglobin 26.2 pg (27.0-31.2); Mean Corpuscular Volume 80.9 fl (81-99); Mean Platelet Volume 9.4 fl (7.4-10.4); Monocytes # 0.4 K/mm3 (0.1-1.0); Monocytes % 5.3 % (1.7-9.3); Neutrophils # 5.2 K/mm3 (1.8-7.8); Neutrophils % 64.9 % (37.0-80.0); Platelet Count 241 K/mm3 (142-424); Red Blood Count 3.98 M/mm3 (4.20-5.40); Red Cell Distribution Width 15.9 % (11.5-17.5)
--- NOTE | 2024-01-24 08:42 | P.DS_ITS ---
General Admission date:: 01/23/24 Discharge date: 01/24/24 HPI HPI HPI: PPD # 1 s/p Feeling well. Pain controlled. Formula feeding. Lochia is appropriate. Voiding without difficulty and passing flatus. Tolerating regular diet. Denies fever/chills, chest pain and shortness of breath. No headaches, vision changes, lightheadedness/dizziness. No lower extremity swelling. Ambulating well ad francis. Hospital Course Hospital Course Hospital Course: Ms Jolie Howard is a 23-year-old -0-2-1 at 39 weeks and 0 days gestation who presented to labor and delivery with regular painful contractions. Patient was observed for 2 hours and noted to be making cervical change. She was admitted for labor monitoring and delivery. Her has been complicated by an MTHFR variant, HSV-2, Rh negative blood type, obesity, and she is a carrier for autosomal recessive polycystic kidney disease. Patient was seen by MFM early in her and started on Lovenox secondary to being on MTHFR carrier with a history of recurrent SAB. This was discontinued at 35 weeks gestation. She took Valtrex for HSV suppression. Her partner was tested and is negative for polycystic kidney disease. On presentation patient endorsed good movement and denies any leakage of fluid or vaginal bleeding. She had amniotomy performed for labor augmentation but did not require Pitocin. She had a normal spontaneous vaginal delivery on 01/23/24 at 0607. She delivered a live male baby, Salvador Gomes, weighing 7 lb 6 oz. APGARs 8 (1 min), 9 (5 min). EBL 100 mL. She did well . Pain controlled. Formula feeding. Light lochia. Voiding without difficulty and passing flatus. Tolerating regular diet. Denies fever/ chills, chest pain and shortness of breath. No headaches, dizziness/lightheadedness or vision changes. Vital signs stable, afebrile. Heart regular rate and rhythm. Lungs clear to auscultation. Abdomen soft, nontender. No lower extremity swelling. Ambulating well ad francis. Normal hospital course. She was discharged to home on POD # 1 with instructions to follow-up in the office in 2 weeks or sooner if needed. Exam Data for Last 24 hours Vital signs and Labs for Last 24 Hours: Temp Pulse Resp BP Pulse Ox O2 Del Method 97.7 F 97 H 18 155/85 H 98 Room Air 01/23/24 00:00 01/23/24 00:00 01/23/24 00:00 01/23/24 00:00 01/23/24 00:00 01/23/24 00:00 Laboratory Results - last 24 hr 01/24/24 05:20: WBC 8.0, RBC 3.98 L, Hgb 10.4 L, Hct 32.2 L, MCV 80.9 L, MCH 26.2 L, MCHC 32.4, RDW 15.9, Plt Count 241, MPV 9.4, Neut % (Auto) 64.9, Lymph % (Auto) 27.5, [place] % (Auto) 5.3, Eos % (Auto) 1.9, Baso % (Auto) 0.5, Neut # (Auto) 5.2, Lymph # (Auto) 2.2, [place] # (Auto) 0.4, Eos # (Auto) 0.2, Baso # (Auto) 0.0 I & O for Last 24 hours: Intake & Output 01/21/24 01/22/24 01/23/24 01/24/24 23:59 23:59 23:59 23:59 Weight 229 lb 229 lb Constitutional Constitutional: no acute distress and cooperative *Routine HEENT Exam Head: Present normocephalic and atraumatic Eye: Absent scleral injection ENT: Present mucous membranes moist *Routine Neck Exam Neck: Present full ROM *Routine Respiratory Exam Respiratory: Present CTA bilaterally and normal respiratory effort *Routine Cardiovascular Exam Cardiovascular: Present RRR *Routine Rectal Exam Patient deferred: visual exam *Routine Exam Patient deferred: external exam *Routine Extremities Exam Extremities: Present full ROM; Absent edema or calf tenderness *Routine Neurological Exam Neurological: Present alert, moving all extremities and normal speech Routine Psychiatric Exam Psychiatric: Present normal affect and cooperative Results Data Completed and Pending Labs on day of discharge: Labs from last 24 hours 01/24/24 05:20 WBC 8.0 RBC 3.98 L Hgb 10.4 L Hct 32.2 L MCV 80.9 L MCH 26.2 L MCHC 32.4 RDW 15.9 Plt Count 241 MPV 9.4 Neut % (Auto) 64.9 Lymph % (Auto) 27.5 [place] % (Auto) 5.3 Eos % (Auto) 1.9 Baso % (Auto) 0.5 Neut # (Auto) 5.2 Lymph # (Auto) 2.2 [place] # (Auto) 0.4 Eos # (Auto) 0.2 Baso # (Auto) 0.0 Screen Pending Baby's Rh Status Pending Rhogam Infusion Pending DS: Diagnosis Discharge Diagnosis (1) Status post vaginal delivery: Status: Acute (2) Active labor: Status: Acute (3) Obesity with body mass index greater than 30: Status: Acute Code(s): E66.9 - Obesity, unspecified (4) HSV (herpes simplex virus) anogenital infection: Status: Acute Code(s): A60.9 - Anogenital herpesviral infection, unspecified (5) Polycystic kidney, autosomal recessive: Status: Acute Code(s): Q61.19 - Other polycystic kidney, infantile type Problem details: carrier (6) MTHFR deficiency complicating : Status: Acute Code(s): O99.280 - Endocrine, nutritional and metabolic diseases complicating , unspecified trimester; E72.12 - Methylenetetrahydrofolate reductase deficiency (7) Rh negative status during : Status: Acute Code(s): O26.899 - Other specified related conditions, unspecified trimester; Z67.91 - Unspecified blood type, Rh negative (8) Acute blood loss anemia: Status: Acute Code(s): D62 - Acute posthemorrhagic anemia Meds Home Medications and Allergies Home Medications Medication Instructions Recorded Confirmed Type PNV 153-FA 400 mcg-om3 35 mg-dha 1 tab PO DAILY Supplement 07/02/23 01/23/24 History 25 mg-epa 5 mg-fish oil chew tablet ( Gummies) valacyclovir 500 mg tablet 1,000 mg (2 x 500 mg) PO DAILY #60 12/18/23 01/23/24 Rx (Valtrex) tabs ibuprofen 800 mg tablet 800 mg PO Q8H PRN pain #20 tabs 01/24/24 Rx New Prescriptions to Start Prescriptions: Kristal Singh Allergies Allergy/AdvReac Type Severity Reaction Status Date / Time No Known Allergies Allergy Verified 01/21/24 09:57 Discharge Plan Disposition Patient Disposition: Home, Self-Care Condition: Good Discharge Order Discharge Orders: Discharge Order (Routine); Ordered 01/24/24 Ordered By: Kristal Goodson Follow up Plan Follow up with: Elisabet Salomon DO [Staff Physician] - 2 weeks Prescriptions/Medication Reconciliation: New ibuprofen 800 mg tablet 800 mg PO Q8H PRN (Reason: pain) Qty: 20 0RF Continued valacyclovir [Valtrex] 500 mg tablet 1,000 mg PO DAILY Qty: 60 3RF Gummies 400 mcg-35 mg- 25 mg-5 mg tablet,chewable 1 tab PO DAILY Problem Reconciliation Problems Reviewed?: Yes Patient Discharge Instructions ACTIVITY: Limited activity DIET: continue same diet and regular diet Additional Instructions: Discharge: 1. Take 800 mg Ibuprofen every 8 hours as needed for pain. You can also take 500-1000 mg of Tylenol in between doses, every 6-8 hours. 2. Nothing in the vagina for 6 weeks - no intercourse, douching or tampons. No tub baths/hot tubs or swimming pools 3. Reasons to return to L&D or call On-Call doctor - fever (greater than 100.4) - heavy vaginal bleeding (soaking through 1 pad in less than 2 hours) - vaginal discharge (malodorous and/or purulent) - severe headaches not resolved by medication or rest and leg tenderness/edema 4. depression/blues - Normal to feel anxious/overwhelmed for first 2 weeks - Talk to your doctor if: severe anxiety, trouble bonding with baby, withdrawing from other family members, thoughts of harming yourself or others Kristal Goodson DO [facility] [phone] Providers Primary Care Provider: Dina Arreola Admit Provider: Elisabet Salomon Attending Provider: Elisabet Salomon
[2024-01-24] MEDS: ACYCLOVIR 400MG TAB 400 MG PO (10:27)
[2024-01-24] MEDS: RHO(D) IMMUNE GLOBULIN 1,500 UNIT SYRINGE IM (11:09)
== END 2024-01-24 12:40 | disposition home or self-care (01) | DRG 806 ==
LOC: OBOUT 01:39 → OB 01:39
PROVIDERS: Admitting Provider Obstetrics & Gynecology; PCP Nurse Practitioner Family; Visit Provider Obstetrics & Gynecology
DX: O99.214 Obesity complicating childbirth (principal); E72.12 Methylenetetrahydrofolate reductase deficiency; Z37.0 Single live birth; Q61.3 Polycystic kidney, unspecified; O98.32 Other infections with a predominantly sexual mode of transmission complicating childbirth; Z3A.39 39 weeks gestation of pregnancy; O99.284 Endocrine, nutritional and metabolic diseases complicating childbirth
CPT/HCPCS: 59409; 36415; 59025; 80053; 80307; 81001; 82800; 85025; 85461; 86850; 87086; 94761; G0283; J2790

== ENCOUNTER 2024-12-18 12:03 | Emergency (ER) | payer OTHER, SELFPAY ==
[2024-12-18 12:04] VITALS: BP 138/76; PULSE 72; RESP 18; TEMP 36.8; O2SAT 98; BMI 34.9
--- NOTE | 2024-12-18 12:28 | PC.NURSE ---
pt brought from triage to RM 14. ASSESSMENT pt c/o a low grade fever, sore throat, dry cough and congestion. pt does not take any daily medications. pt states she has been exposed to strep. no needs voiced. call smiley in reach.
--- NOTE | 2024-12-18 12:35 | HMH.EDGENADL ---
Discharge Plan Disposition Chief Complaint: Upper Respiratory Infection Prescriptions Prescriptions: No Action ibuprofen 800 mg tablet 800 mg PO Q8H PRN (Reason: pain) Qty: 20 0RF Referrals Follow up/Referrals: Dina Arreola [Primary Care Provider] - See instructions Print Language Print Language: Croatian Discharge ED Provider: Yamil Espino General Adult HPI General Chief complaint: Upper Respiratory Infection Stated complaint: sore throat, cough, fever Time Seen by Provider: 12/18/24 12:34 Mode of Arrival: Ambulatory Source of Information: Patient Limitations: No Limitations Description of Symptoms (Recalled from ER Triage Doc. by RN): Pt presents for evaluation of cough and sore throat. Related Data Previous Rx's ?Medication ?Instructions ?Recorded ibuprofen 800 mg tablet 800 mg PO Q8H PRN pain #20 tabs 01/24/24 Allergies Allergy/AdvReac Type Severity Reaction Status Date / Time No Known Allergies Allergy Verified 03/10/24 10:59 [facility] Disclaimer: The information contained in this section may have been updated after the patient was seen, as this information can be updated by other users. Medical History Polycystic kidney, autosomal recessive carrier Acute blood loss anemia Active labor Rh negative status during Tobacco abuse Recurrent loss Missed with demise before 20 completed weeks of gestation Surgical History Status post vaginal delivery History of removal of ovarian cyst Hx of dilation and curettage x2 Family History Other Family history of hyperlipidemia Family history of hypertension Social History Smoking Status: Never smoker alcohol intake: never substance use type: denies use current occupational status: employed Travel in the last 8 weeks: None housing: house lives independently: Yes marital status: single caffeine: Yes special gary needs: No agree to transfusion: No do you feel safe at home: Yes victim of physical abuse: No victim of emotional abuse: No victim of sexual abuse: No would you like helpful sources: No Other Medical History Have you received the Flu Vaccine for this season: No Have you received the Pneumonia Vaccine: No ROS Obtained: Yes Systems reviewed as appropriate & no additional complaints except as documented Physical Exam General General appearance: alert and in no apparent distress Head Head exam: atraumatic and normal inspection Eye Eye exam: Present normal appearance, PERRL and EOMI ENT ENT exam: Present normal exam, normal oropharynx and mucous membranes moist Neck Neck exam: Present normal inspection, full ROM and trachea midline; Absent lymphadenopathy Chest Chest inspection: Present normal inspection and symmetric chest wall rise Respiratory Respiratory exam: Present normal lung sounds bilaterally; Absent accessory muscle use Cardiovascular Cardiovascular exam: Present regular rate, normal rhythm, normal heart sounds, +S1 and +S2 Abdominal Exam Abdominal exam: Present soft and normal bowel sounds; Absent tenderness, guarding or rebound Extremities Exam Extremities exam: Present normal inspection and full ROM Neurological Exam Neurological exam: Present alert, oriented X3 and CN II-XII intact Psychiatric Psychiatric exam: Present normal affect and normal mood Skin Skin exam: Present warm, dry and normal color Lymphatic Lymphatic Findings: no adenopathy Medical Decision Making Medical Records Screening: Per USPSTF and CDC recommendations, given the prevalence of disease in our region, it is our hospital?s policy to screen for HIV and viral Hepatitis for all patients aged 18 and over and those with ongoing risk factors. Vital Signs: 12/18/24 12:04 Temperature 98.2 F Temperature Source Oral Pulse Rate [Right Radial] 72 Respiratory Rate 18 Blood Pressure [Right Arm] 138/76 Blood Pressure Mean [Right Arm] 96 Blood Pressure Source [Right Arm] Automatic Cuff Blood Pressure Position [Right Arm] Sitting 02 Sat by Pulse Oximetry 98 Oxygen Delivery Method Room Air Orders (Tests/Meds): ORDERS Category Date Time Status Rapid PCR Covid and Flu A/B Routine Lab 12/18/24 12:27 Ordered Strep Scrn Group A (Rapid) Stat Lab 12/18/24 12:35 Ordered Medical Decision Narrative: In summary patient is a [age, sex] who presents to the emergency department for evaluation of [complaint]. Patient is [hemodynamically stable/unstable] upon arrival, [febrile/afebrile]. [Unremarkable physical exam, nonfocal exam versus focal remarkable exam]. Differential diagnosis includes [DDx]. Initial workup will be conducted with [hematologic labs, imaging, respiratory swab, describe workup]. Initial interventions include [crystalloid bolus, medications, p.o. challenge, etc.] initial workup reviewed by me [hematologic labs are remarkable for... Imaging remarkable for... Urinalysis remarkable for]. Upon repeat evaluation [patient had acceptable resolution of symptoms, had persistent pain for which additional interventions were conducted (describe interventions), tolerated p.o., was ambulatory, etc.]. Given this [patient is appropriate for discharge at this time and will be discharged with a prescription for... The case was discussed with hospital medicine regarding management and they will admit the patient their service for continued evaluation at this time... Etc.] Places where you can increase complexity: I informally interpreted the patient's chest x-ray or CT read and is remarkable for... Documenting what the cardiac rehabilitation program director shows with rate and rhythm Consideration of test but deferring. Ex: I considered chest x-ray on this patient however given that they have no oxygen requirement and are clear to auscultation all lung coffey will be deferred. Social determinants of health: Given that patient is undomiciled increases complexity. Given that patient has polysubstance abuse compounds all aspects of care
[2024-12-18 12:43] VITALS: BP 138/76; PULSE 72; RESP 18; TEMP 36.8; O2SAT 98
--- NOTE | 2024-12-18 12:43 | ED_ITS ---
Discharge Plan Disposition Patient Disposition: Home, Self-Care Prescriptions Prescriptions: No Action ibuprofen 800 mg tablet 800 mg PO Q8H PRN (Reason: pain) Qty: 20 0RF Referrals Follow up/Referrals: Dina Arreola [Primary Care Provider] - See instructions Activity Restrictions/Add. Instructions Additional Instructions/Restrictions: Your symptoms today are consistent with a viral upper respiratory infection. No evidence of a serious bacterial infection or strep throat. Please administer supportive care including Tylenol ibuprofen humidifier [id number] cough medicine etc. Additionally I highly recommend you stop vaping as this will improve your success of healing. Clinical Impressions Clinical Impression: Upper respiratory infection, Encounter for smoking cessation counseling Instructions Patient Instructions: DI for Acute Bronchitis Print Language Print Language: Kinyarwanda Discharge ED Provider: Yamil Espino General Adult HPI General Chief complaint: Upper Respiratory Infection Stated complaint: sore throat, cough, fever Time Seen by Provider: 12/18/24 12:34 Mode of Arrival: Ambulatory Source of Information: Patient Limitations: No Limitations Description of Symptoms (Recalled from ER Triage Doc. by RN): Pt presents for evaluation of cough and sore throat. History of Present Illness HPI narrative: Patient is a 24-year-old female presenting today with cough congestion some sore throat no high fever and she also is accompanied by her son who has the same symptoms including rhinorrhea. She states that they have been exposed to strep. She does not primarily have a sore throat at the moment. Does vape and has no other cardiopulmonary pathology in the past. Denies any other significant past medical history she is up-to-date on vaccinations. Related Data Home Medications ?Medication ?Instructions ?Recorded ?Confirmed No Known Home Medications 12/18/24 12/18/24 Allergies Allergy/AdvReac Type Severity Reaction Status Date / Time No Known Allergies Allergy Verified 12/18/24 12:42 [facility] Disclaimer: The information contained in this section may have been updated after the patient was seen, as this information can be updated by other users. Medical History Polycystic kidney, autosomal recessive carrier Acute blood loss anemia Active labor Rh negative status during Tobacco abuse Recurrent loss Missed with demise before 20 completed weeks of gestation Surgical History Status post vaginal delivery History of removal of ovarian cyst Hx of dilation and curettage x2 Family History Other Family history of hyperlipidemia Family history of hypertension Social History Smoking Status: Never smoker alcohol intake: never substance use type: denies use current occupational status: employed Travel in the last 8 weeks: None housing: house lives independently: Yes marital status: single caffeine: Yes special gary needs: No agree to transfusion: No do you feel safe at home: Yes victim of physical abuse: No victim of emotional abuse: No victim of sexual abuse: No would you like helpful sources: No Have you lived/traveled outside [place] in past 30 days?: No Contact w/someone who lives/traveled outside [place] past 30 days?: No Exposure to someone with infectious disease in past 14 days?: No Do you have a fever (greater than 100.4 F or 38 C)?: Yes Have you tested positive for COVID-19: No Exposed to someone with COVID-19 in past 14 days?: No Do you have a sore throat?: Yes Do you have a cough?: Yes Do you have any weakness?: No Do you have any diarrhea?: No Are you experiencing any unusual bleeding?: No Do you have any muscle aches/pain?: No Do you have any abdominal pain?: No Are you experiencing loss of taste or smell?: No Other Medical History Have you received the Flu Vaccine for this season: No Have you received the Pneumonia Vaccine: No ROS Obtained: Yes All systems reviewed & no additional complaints except as documented Physical Exam General General appearance: alert ENT ENT exam: Present normal oropharynx Respiratory Respiratory exam: Present normal lung sounds bilaterally; Absent respiratory distress Cardiovascular Cardiovascular exam: Present regular rate Neurological Exam Neurological exam: Present alert and oriented X3 Medical Decision Making Medical Records Screening: Per USPSTF and CDC recommendations, given the prevalence of disease in our region, it is our hospital?s policy to screen for HIV and viral Hepatitis for all patients aged 18 and over and those with ongoing risk factors. Song Inquiry Pt receiving controlled substance: No Vital Signs: 12/18/24 12:04 Temperature 98.2 F Temperature Source Oral Pulse Rate [Right Radial] 72 Respiratory Rate 18 Blood Pressure [Right Arm] 138/76 Blood Pressure Mean [Right Arm] 96 Blood Pressure Source [Right Arm] Automatic Cuff Blood Pressure Position [Right Arm] Sitting 02 Sat by Pulse Oximetry 98 Oxygen Delivery Method Room Air Orders (Tests/Meds): ORDERS Category Date Time Status Rapid PCR Covid and Flu A/B Routine Lab 12/18/24 12:27 Ordered Medical Decision Narrative: Very well-appearing 24-year-old female presented today with viral upper respiratory infection symptoms. She is here with her son who has similar symptoms well this is consistent with a virus not a serious bacterial infection specifically not strep throat. Her throat exam is normal. No indication for strep swabbing her. I discussed with her that determine the exact etiology of her virus will not change any management as she is not high risk for complications and would not be a candidate for antiviral therapy and supportive care was discussed she did wish to have a COVID and flu swab that were sent and she will follow-up through her portal with this. She was discharged in stable condition Critical Care Critical Care Time Critical Care Time: No
== END 2024-12-18 12:52 | disposition home or self-care (01) ==
PROVIDERS: Emergency Provider Student in an Organized Health Care Education/Training Program; PCP Nurse Practitioner Family
DX: J06.9 Acute upper respiratory infection, unspecified (principal); R05.9 Cough, unspecified; R09.81 Nasal congestion; J02.9 Acute pharyngitis, unspecified; F17.290 Nicotine dependence, other tobacco product, uncomplicated; Z20.818 Contact with and (suspected) exposure to other bacterial communicable diseases; Z71.6 Tobacco abuse counseling
CPT/HCPCS: 99281; 99282